=== PATIENT | male | born 1940 | race Caucasian/White ===

== ENCOUNTER 2019-07-14 20:21 | Inpatient (IN) ==
[2019-07-14] MEDS ORDERED: Furosemide 20 MG/2 ML VIAL IVP ONE (21:25)
[2019-07-15] MEDS ORDERED: Naloxone 0.4 MG/ML INJ IVP PRN (00:31)
[2019-07-15] MEDS ORDERED: *HR* Dextrose 50 % in Water (Syg) 50 ML SYRINGE IVP PRN (00:32)
[2019-07-15] MEDS ORDERED: D5% in Water 1,000 ML IVC PRN (00:32)
[2019-07-15] MEDS ORDERED: Dextrose Gel 15 GM/37.5 ML TUBE PO PRN ×2 (00:32)
[2019-07-15] MEDS: Insulin LISPRO 300 UNITS/3 ML VIAL SQ SCH ×4 (01:11→17:48)
[2019-07-15 02:09] LABS: Basophils % 0.8 %; Eosinophils # 0.3 K/mcL (0.0-0.6); Eosinophils % 4.8 %; Hematocrit 31.1 % (37.5-50.1); Hemoglobin 9.9 g/dL (12.9-16.9); Immature Granulocytes % 0.2 % (0-4); Lymphocytes # 1.7 K/mcL (0.6-4.6); Lymphocytes % 32.6 %; Mean Corpuscular HGB Conc 31.8 g/dL (31.6-35.5); Mean Corpuscular Hemoglobin 27.5 pg (28.0-33.3); Mean Corpuscular Volume 86.4 fL (83.0-100.0); Monocytes # 0.7 K/mcL (0.0-1.3); Neutrophils # 2.5 K/mcL (1.6-8.9); Platelet Count 254 K/mcL (140-400); Segmented Neutrophils % 48.6 %; White Blood Count 5.2 K/mcL (4.3-11.1)
[2019-07-15 02:17] LABS: Prothrombin Time 11.7 Seconds (9.4-12.1)
[2019-07-15 02:31] LABS: Alanine Aminotransferase 7 Units/L (7-52); Albumin 3.8 g/dL (3.5-5.7); Albumin/Globulin Ratio 1.3 (1.1-2.2); Alkaline Phosphatase 71 Units/L (34-104); Aspartate Amino Transferase 10 Units/L (13-39); BUN/Creatinine Ratio 21 (6-26); Bilirubin,Total 0.5 mg/dL (0.3-1.0); Blood Urea Nitrogen 20 mg/dL (8-23); Calcium 9.1 mg/dL (8.6-10.3); Carbon Dioxide 25 mEq/L (23-29); Chloride 106 mEq/L (98-107); Glucose 185 mg/dL (70-105); Magnesium 1.6 mg/dL (1.6-2.6); Osmolality,Calculated 295 (280-300); Potassium 3.4 mEq/L (3.5-5.1); Sodium 139 mEq/L (136-145); Total Protein 6.8 g/dL (6.4-8.9); Troponin I < 0.03 ng/mL (< 0.04); eGFR For African Americans > 60 (> 60); eGFR For Non-African Americans > 60 (> 60)
[2019-07-15] MEDS: Levalbuterol 1 PUFF INHALER IH SCH ×4 (04:09→22:23)
[2019-07-15] MEDS ORDERED: Ipratropium 1 PUFF INHALER IH PRN (05:05)
[2019-07-15] MEDS: *HR* Heparin 5,000 UNIT/ML VIAL SQ SCH ×3 (05:38→20:34)
[2019-07-15] MEDS: Triamcinolone Acet 0.1% CRM 15 GM TUBE TP SCH (05:38)
[2019-07-15] MEDS: Multivit/Ca/Min/Fe/FA 1 TAB TABLET PO SCH (08:42)
[2019-07-15] MEDS: Furosemide 20 MG/2 ML VIAL IVP SCH ×2 (08:43→17:48)
[2019-07-15 10:00] LABS: Bilirubin,Urine Negative (Negative); Blood,Urine Large (Negative); Clarity,Urine Clear (Clear); Color,Urine Yellow (Yellow); Glucose,Urine (UA) 250 mg/dL (Normal); Ketones,Urine Negative (Negative); Leukocyte Esterase,Urine Negative (Negative); Nitrite,Urine Negative (Negative); Protein,Urine Negative (Neg-Trace); Specific Gravity,Urine 1.015 (1.010-1.025); Urobilinogen,Urine Normal (Normal)
[2019-07-15 10:03] LABS: Bacteria,Urine None Seen per hpf (None-Few); Hyaline Casts,Urine None Seen per lpf (None-Few); RBC,Urine TNTC per hpf (0-3); Squamous Epithelial Cell,Urine None Seen per lpf (None-Few); WBC,Urine 0-3 per hpf (0-3)
[2019-07-15] MEDS: Budesonide/Formoterol 160/4.5 1 PUFF INH IH SCH ×2 (10:17→22:23)
[2019-07-15] MEDS: Preparation H Ointment 30 GM TUBE TP SCH (12:16)
[2019-07-15] MEDS: Morphine Sulfate Oral CONC 10 MG/0.5 ML ORAL.SYG SL PRN (18:34)
[2019-07-15] MEDS ORDERED: Insulin LISPRO 300 UNITS/3 ML VIAL SQ SCH (21:00)
[2019-07-16] MEDS: (Ketotifen Fumarate [Zaditor] 1 DROP) OP SCH ×2 (00:15→08:44)
[2019-07-16] MEDS: Preparation H Ointment 30 GM TUBE TP SCH ×2 (00:15→08:44)
[2019-07-16] MEDS: Morphine Sulfate Oral CONC 10 MG/0.5 ML ORAL.SYG SL PRN ×2 (02:42→20:02)
[2019-07-16] MEDS: Levalbuterol 1 PUFF INHALER IH SCH ×3 (04:04→16:18)
[2019-07-16] MEDS: Triamcinolone Acet 0.1% CRM 15 GM TUBE TP SCH (06:11)
[2019-07-16] MEDS: *HR* Heparin 5,000 UNIT/ML VIAL SQ SCH ×3 (06:11→19:56)
[2019-07-16] MEDS: Furosemide 20 MG/2 ML VIAL IVP SCH (08:30)
[2019-07-16] MEDS: Multivit/Ca/Min/Fe/FA 1 TAB TABLET PO SCH (08:30)
[2019-07-16] MEDS: Insulin LISPRO 300 UNITS/3 ML VIAL SQ SCH ×3 (08:31→16:33)
[2019-07-16] MEDS ORDERED: Furosemide 20 MG/2 ML VIAL IVP ONE (09:08)
[2019-07-16 10:05] LABS: Basophils % 0.8 %; Eosinophils # 0.3 K/mcL (0.0-0.6); Eosinophils % 5.1 %; Hematocrit 32.1 % (37.5-50.1); Hemoglobin 10.3 g/dL (12.9-16.9); Immature Granulocytes % 0.2 % (0-4); Lymphocytes # 2.3 K/mcL (0.6-4.6); Lymphocytes % 46.2 %; Mean Corpuscular HGB Conc 32.1 g/dL (31.6-35.5); Mean Corpuscular Hemoglobin 27.3 pg (28.0-33.3); Mean Corpuscular Volume 85.1 fL (83.0-100.0); Monocytes # 0.5 K/mcL (0.0-1.3); Monocytes % 10.1 %; Neutrophils # 1.9 K/mcL (1.6-8.9); Platelet Count 245 K/mcL (140-400); Red Blood Count 3.77 M/mcL (4.19-5.50); Segmented Neutrophils % 37.6 %; White Blood Count 5.1 K/mcL (4.3-11.1)
[2019-07-16 10:20] LABS: BUN/Creatinine Ratio 15 (6-26); Blood Urea Nitrogen 16 mg/dL (8-23); Calcium 8.8 mg/dL (8.6-10.3); Carbon Dioxide 28 mEq/L (23-29); Chloride 102 mEq/L (98-107); Glucose 242 mg/dL (70-105); Osmolality,Calculated 297 (280-300); Potassium 3.4 mEq/L (3.5-5.1); Sodium 139 mEq/L (136-145); eGFR For African Americans > 60 (> 60); eGFR For Non-African Americans > 60 (> 60)
[2019-07-16] MEDS: Budesonide/Formoterol 160/4.5 1 PUFF INH IH SCH (10:51)
[2019-07-16 16:30] LABS: Bilirubin,Urine Negative (Negative); Blood,Urine Negative (Negative); Clarity,Urine Clear (Clear); Color,Urine Yellow (Yellow); Glucose,Urine (UA) >=1000 mg/dL (Normal); Ketones,Urine Negative (Negative); Leukocyte Esterase,Urine Negative (Negative); Nitrite,Urine Negative (Negative); PH,Urine 7.5 pH Units (5.0-8.0); Protein,Urine Negative (Neg-Trace); Urobilinogen,Urine Normal (Normal)
[2019-07-16] MEDS ORDERED: Furosemide 20 MG/2 ML VIAL IVP SCH (17:00)
[2019-07-16] MEDS ORDERED: Furosemide 40 MG/4 ML VIAL IVP SCH (17:00)
[2019-07-17 01:08] VITALS: BP 135/91
[2019-07-17] MEDS ORDERED: Furosemide 20 MG/2 ML VIAL IVP SCH (09:00)
== END 2019-07-16 21:25 | disposition other institution (70) | DRG 948 ==
LOC: 3NENU 20:21 → EMEROOARM 20:21 → 3NENU 23:15 → 3BNU 07-15 01:27
PROVIDERS: ADMIT Internal Medicine; ATTEND Internal Medicine